=== PATIENT | female | born 1970 | race Caucasian/White ===

== ENCOUNTER → 2017-04-27 | Outpatient (CLI) | payer BC ==
[2017-04-27 15:44] LABS: BASO # 0.1 x10^3/uL (0.0-0.2); BASO % 1 % (0-3); EOS % 1 % (0-3); HEMATOCRIT 44.8 % (36.0-47.0); HEMOGLOBIN 15.3 g/dL (12.0-15.5); LYMPH # 2.5 x10^3/uL (1.0-4.8); LYMPH % 28 % (24-48); MEAN CORPUSCULAR HEMOGLOBIN 31 pg (25-35); MEAN CORPUSCULAR HGB CONC 34 g/dL (31-37); MEAN CORPUSCULAR VOLUME 90 fL (79-100); MONO % 6 % (0-9); NEUT % 65 % (31-73); PLATELET COUNT 284 x10^3/uL (140-400); RED BLOOD COUNT 4.99 x10^6/uL (3.50-5.40); RED CELL DISTRIBUTION WIDTH 13.7 % (11.5-14.5); WHITE BLOOD COUNT 9.1 x10^3/uL (4.0-11.0)
--- NOTE | 2017-04-27 15:54 | EKG ---
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
[2017-04-27 16:27] LABS: ALBUMIN 3.4 g/dL (3.4-5.0); ALBUMIN/GLOBULIN RATIO 0.9 (1.0-1.7); CALCIUM 8.6 mg/dL (8.5-10.1); CREATININE 0.7 mg/dL (0.6-1.0); GFR 89.7; TOTAL BILIRUBIN 0.4 mg/dL (0.2-1.0)
--- NOTE | 2017-04-27 16:33 | RAD ---
Indication preop. Anticipated hysterectomy. PA and lateral views of the chest were obtained. No prior imaging of the chest is available. Inspiratory effort is suboptimal. This is likely a function, at least in part, of patient body habitus. There is no gross congestive heart failure. There is no consolidated pneumonia significant pleural fluid collection or pneumothorax. There are degenerative changes in the thoracic spine IMPRESSION: Suboptimal inspiratory effort. No focal process seen in the chest
== END | disposition home or self-care (01) ==
LOC: SURGPAT 14:36
PROVIDERS: ATTEND Obstetrics & Gynecology
DX: Z01.818 Encounter for other preprocedural examination (principal)
CPT/HCPCS: 36415; 71020; 80053; 85027; 93005

== ENCOUNTER 2017-05-06 08:08 | Observation (INO) | payer BC ==
[2017-05-06] VITALS (8 sets, daily range): BP systolic 102–118; BP diastolic 54–68
[~2017-05-06] VITALS: Ht 154.9 cm; Wt 93.0 kg
[~2017-05-06 08:08] MED LIST: BUPIVACAINE-EPI 0.25%-1:200000 MPF 30 ML VIAL. ONE; CLINDAMYCIN 600MG PREMIX 50 ML IV PRN; HYDROmorphone 2 MG/ML VIAL IV PRN; IV RINGERS,LACTATED 1000ML 1,000 ML IV SCH; LIDOCAINE 1% 1 ML SYRINGE. ID PRN; MEPERIDINE PF 25 MG/ML VIAL. IV PRN; MIDAZOLAM HCL/PF 2 MG/2 ML VIAL. IV PRN; MORPHINE SULFATE 4 MG/ML DISP.SYRIN. IV PRN; PROCHLORPERAZINE 10 MG/2 ML VIAL. IV PRN; diphenhydrAMINE 50 MG/ML VIAL IV PRN; fentaNYL PF VIAL 100 MCG/2 ML VIAL IV PRN
[2017-05-06] MEDS ORDERED: ONDANSETRON PF 4 MG/2 ML VIAL. ONE (08:58)
[2017-05-06] MEDS ORDERED: ROCURONIUM 50 MG/5 ML VIAL. ONE (08:58)
[2017-05-06] MEDS ORDERED: FAMOTIDINE 20 MG/2 ML VIAL ONE (08:58)
[2017-05-06] MEDS ORDERED: fentaNYL PF VIAL 100 MCG/2 ML VIAL ONE ×2 (08:58→09:50)
[2017-05-06] MEDS ORDERED: DEXAMETHASONE SOD PHOS 20 MG/5 ML VIAL. ONE (08:58)
[2017-05-06] MEDS ORDERED: PROPOFOL 20 ML IV ONE (08:58)
[2017-05-06] MEDS ORDERED: LIDOCAINE 2% PF Vial for OR 5 ML VIAL. ONE (08:58)
[2017-05-06] MEDS ORDERED: MIDAZOLAM HCL/PF 2 MG/2 ML VIAL. ONE (08:58)
[2017-05-06 09:24] LABS: NEG OBC UR NEG; POS OBC UR POS
[2017-05-06] MEDS ORDERED: PHENYLEPHRINE in 0.9% NACL PF 1 MG/10 ML DISP.SYRIN. IV ONE (09:36)
[2017-05-06] MEDS ORDERED: ePHEDrine PF IN SALINE 50 MG/5 ML DISP.SYRIN IV ONE (09:39)
[2017-05-06] MEDS ORDERED: GLYCOPYRROLATE 1 MG/5 ML VIAL. ONE (11:10)
[2017-05-06] MEDS ORDERED: NEOSTIGMINE METHYLSULFATE 5 MG/5 ML SYRINGE. ONE (11:10)
[2017-05-06] MEDS ORDERED: KETOROLAC 60 MG/2 ML INJ FOR OR. ONE (11:11)
[2017-05-06] MEDS ORDERED: DESFLURANE > 120 MINUTES IH ONE (11:32)
[2017-05-06] MEDS ORDERED: MAGNESIUM HYDROXIDE 2,400 MG/30 ML ORAL.SUSP. PO PRN (11:45)
[2017-05-06] MEDS ORDERED: MORPHINE SULFATE 2 MG/ML DISP.SYRIN. IV PRN (11:45)
[2017-05-06] MEDS ORDERED: NALOXONE 0.4 MG/ML VIAL. IV PRN (11:45)
[2017-05-06] MEDS ORDERED: CALCIUM CARBONATE 500 MG TAB.CHEW PO PRN (11:45)
[2017-05-06] MEDS ORDERED: HYDROcodone/APAP 5/325MG 1 TAB TABLET PO PRN (11:45)
[2017-05-06] MEDS ORDERED: diphenhydrAMINE 50 MG/ML VIAL IV PRN (11:45)
[2017-05-06] MEDS ORDERED: ZOLPIDEM 5 MG TABLET. PO PRN (11:45)
[2017-05-06] MEDS ORDERED: SIMETHICONE 80 MG TAB.CHEW PO PRN (11:45)
[2017-05-06] MEDS ORDERED: LACTULOSE 20 GM/30 ML SOLUTION. PO PRN (11:45)
[2017-05-06] MEDS ORDERED: ONDANSETRON PF 4 MG/2 ML VIAL. IV PRN (11:45)
[2017-05-06] MEDS ORDERED: diphenhydrAMINE HCL 25 MG CAPSULE PO PRN (11:45)
[2017-05-06] MEDS ORDERED: MAG HYDROX/ALUMINUM HYD/SIMETH 30 ML ORAL.SUSP PO PRN (11:45)
--- NOTE | 2017-05-06 11:55 | PDOC ---
BRIEF OPERATIVE NOTE Date: May 06, 2017 Pre-Op Diagnosis menorrhagia, ovarian cyst, enlarged uterus Post-Op Diagnosis same with pelvic adhesive disease Procedure Performed LAVH, bilateral salpingectomy,drainage left ovarian cyst, adhesiolysis Surgeon Dr. Sandra Quintana Software Client Architect Dr. Katarina Trejo Anesthesiologist see anesthesia records Anesthesia Type: General Blood Loss 100cc IV Fluid see anesthesia records Urine Output 600cc clear via busby Specimens Obtained cervix, uterus, bilateral tubes Findings enlarged uterus with fundus adhesed to anterior abdominal wall, enlarged left ovary with simple cyst, omental adhesions to anterior abdominal wall also; normal right tube and ovary Complications none Additional Remarks [id number] SANDRA QUINTANA MD May 06, 2017 11:55
[2017-05-06] MEDS: fentaNYL PF VIAL 100 MCG/2 ML VIAL IV PRN ×2 (12:15→12:48)
--- NOTE | 2017-05-06 12:57 | OP ---
DATE OF SURGERY: 05/06/2017 PREOPERATIVE DIAGNOSES: Enlarged uterus, menorrhagia, and known ovarian cyst seen on sonogram. POSTOPERATIVE DIAGNOSES: Enlarged uterus, menorrhagia, and known ovarian cyst seen on sonogram with pelvic adhesive disease and a left ovarian simple cyst. PROCEDURE PERFORMED: Laparoscopic-assisted vaginal hysterectomy, bilateral salpingectomy, drainage of left ovarian cyst, and extensive adhesiolysis. SURGEON: Mitchell Mello M.D. and Katarina Trejo MD ANESTHESIA: General endotracheal. ESTIMATED BLOOD LOSS: 100 mL. URINE OUTPUT: 600 mL clear via García catheter. FINDINGS: An enlarged uterus with the fundus adhesed to the anterior abdominal wall, normal right tube and ovary, normal left tube, enlarged left ovary with simple cyst. Also, she had scattered omental adhesions to the anterior abdominal wall as well that had to be taken down. COMPLICATIONS: None. DESCRIPTION OF PROCEDURE: This patient was taken to the Operating Room where general anesthesia was placed. The patient was placed in a dorsal lithotomy position in [facility]. The patient's abdomen and vagina were prepped and draped in the normal sterile fashion, and a García catheter was inserted under sterile technique. At this point, a time-out was performed. Once this was done, a bivalve speculum was placed in the patient's vagina. A single tooth tenaculum was used to grasp the anterior lip of the cervix. A 10 mL of 0.25% Marcaine with epinephrine was used to circumferentially inject around the cervix for both hemodissection and hemostatic purposes later. The cervix was drawn at very high and had minimal descend or movement at this point due to what I thought was her enlarged uterus and then possible adhesions which turned out to be ____. The Valtchev uterine manipulator was placed through the endocervical os, locked on the single tooth tenaculum, and the bivalve speculum was then removed. Top gloves were discarded and changed. Attention was then turned to the abdomen where a small supraumbilical skin incision was made with the scalpel. Curved Naheed was used to dissect through the subcuticular layer to the fascia. The 5-mm Visiport was used to directly enter the abdominal cavity. Opening patient pressure was 3-4 mmHg. Carbon dioxide gas was used to then appropriately insufflate the abdominal cavity to maintain a pressure of 15 mmHg. The patient was placed in Trendelenburg position. Omental adhesions were initially seen. We could easily get around them and then place the right lower quadrant port, another 5 mm port, a small incision was made coming in under direct visualization without difficulty with a 5 mm Ethicon atraumatic disposable port. We did move the scope over to look at the umbilical port to make sure it was clear of bowel adhesions, and it was actually above the adhesions. The adhesions were from the umbilicus down towards the uterus. Once we got around the omental adhesions and took those down, you could see dense adhesions of the fundus of the uterus. It was adhesed to the anterior abdominal wall, very thick, dense adhesions, but we were able to get around it, and the bladder flap was lower than this, so they were safe to be taken down laparoscopically under direct visualization. A left lower quadrant port was placed under direct visualization as well, and we used a [place] and the LigaSure then to take down all the omental adhesions and then the fundal adhesions of the uterus to the anterior abdominal wall. The round ligaments were identified bilaterally. They were cauterized and cut with the LigaSure Advance creating a window in the mesosalpinx going down and making the bladder flap anteriorly as far as we could see, and then we went back and took down the fundal adhesions once we knew the bladder was down and we could see around that. Once the uterus was down, the remainder of it was easy. She had a long skinny enlarged uterus. We could further make that bladder flap sharply with the monopolar tip making sure it was down elevating the tubes but leaving both ovaries. She does have a simple 3-4 cm cyst straw-colored fluid on the left that was easily drained with the monopolar tip, but leaving both ovaries per the patient's request, crossing above the ovary, below the tube through the mesosalpinx, amputating both tubes, and then crossing bilateral uteroovarian pedicles as well, going down and getting the uterines and then crossing contralaterally and hugging the cervix and staying vertical going down to the level of the uterosacrals. Once the uterus was free, and it was blanched, and it was always free posteriorly, and all the adhesions were taken down, and the blood supply was obtained, all instruments were removed from the abdomen, and attention was turned vaginally. Again, before even doing the uterus, we did take down the omental adhesions in the midline. It was between the port and the uterus as well using the LigaSure, the monopolar tip, and just crossing it, cauterizing and cutting it, making sure it was clear, and it was just omentum and then we did the hysterectomy and discarded above. All instruments were removed from the vagina, and a weighted speculum was placed in. Thyroid Melissa clamps were placed on the anterior and posterior lips of the cervix respectively. A scalpel was used to make a circumferential incision in the cervix. An open Ray-Prashant 4 x 4 was used to gently push up the anterior bladder peritoneum. The cervix was elevated, and the posterior cul-de-sac was sharply entered with curved Kan scissors. A #0 Vicryl stitch was used to secure the posterior peritoneum here to the vaginal cuff. It was tagged with a curved Naheed clamp, and the needle was cut and passed off. The short weighted speculum was removed and replaced with the long weighted Luis speculum. Curved Ayaan clamps x 2 were placed on the patient's left uterosacral ligament. They were doubly clamped with curved Heaneys, cut with Kan scissors and suture ligated x2 with #0 Vicryl. Second one was taken through the vaginal cuff securing the uterosacral ligament to the vaginal cuff and tagging it with a straight Naheed clamp and cutting and passing the needle off. This was done exactly the same on the patient's right uterosacral, double clamping the uterosacrals with curved Heaneys, cutting with the long Kan scissors, and suture ligating x2 with #0 Vicryl, again taking the second one through the vaginal cuff securing uterosacral ligament to the vaginal cuff and tagging it with a straight Naheed clamp and cutting and passing the needle off. The remaining pedicle on both sides was delineated with a curved right angle clamp taking it around that and then using the vaginal LigaSure Max to cauterize these pedicles in 2-3 bites. Once it was free all the way around the cervix, uterus, bilateral tubes were delivered in total and passed off for permanent pathology. I did attempt to find the anterior bladder peritoneum. However, it was very very high and difficult to find, so I did not do this. I did use a sponge stick to examine the pedicles and evacuated the cul-de-sac of any clots and debris. I took out the long weighted speculum and replaced it with the short weighted vaginal speculum, and I took 2-0 Vicryl through near the anterior cuff, the left uterosacral ligament, posterior peritoneum, and right uterosacral ligament, thus closing the peritoneum in a pursestring like fashion. Both right and left uterosacral tags were clipped at this point, and all that remained was that posterior cuff tag. The vaginal cuff was closed in an anterior to posterior running locked fashion with a full length 2-0 Vicryl and tied to that posterior cuff tag. A few interrupted sutures were placed in the middle at the end with excellent results. Once this was done, all instruments were removed vaginally, and all gloves were discarded and changed. A second look from above cleared any clots and debris, irrigated the cul-de-sac, making sure it was clear and hemostatic, and it was. Tisseel was placed over the pedicles. The right and left lower quadrant ports were removed. Before removing it, we did look back at the umbilical port. It was still clear. After doing all the adhesiolysis and the right and left lower quadrant ports were removed under direct visualization, these two were hemostatic. Gas was released from the umbilical port. All three port sites were closed with 4-0 nylon at the level of the skin and injected with a total of 10 mL of 0.25% Marcaine with epinephrine. The patient was awakened from anesthesia, extubated, and taken to Recovery room in stable condition. MITCHELL MELLO MD DR: ELPIDIO/ana maría JOB#: [id number] / [id number]
[2017-05-06] MEDS: 0.9 % SODIUM CHLORIDE 10 ML DISP.SYRIN. IV PRN (13:43)
[2017-05-06] MEDS: KETOROLAC TROMETHAMINE 30 MG/ML INJ. IV PRN ×2 (13:54→20:09)
[2017-05-06] MEDS: oxyCODONE/APAP 5/325 1 TAB TABLET PO PRN ×2 (16:08→22:04)
[2017-05-07] MEDS: KETOROLAC TROMETHAMINE 30 MG/ML INJ. IV PRN ×2 (02:01→08:16)
[2017-05-07] MEDS: oxyCODONE/APAP 5/325 1 TAB TABLET PO PRN ×2 (02:02→06:01)
[2017-05-07 06:00] VITALS: BP 109/56
[2017-05-07 07:12] LABS: CALCIUM 8.9 mg/dL (8.5-10.1); GFR 59.4; POTASSIUM 4.3 mmol/L (3.5-5.1)
[2017-05-07] MEDS: 0.9 % SODIUM CHLORIDE 10 ML DISP.SYRIN. IV PRN (08:13)
--- NOTE | 2017-05-07 08:59 | PDOC ---
SURGICAL PROGRESS NOTE Subjective Doing well without complaints. Tolerating regular diet, voiding without catheter, passing flatus, walking halls, tolerating po pain meds and wanting to go home. Scant vag spotting only Vital Signs Vital Signs Date Time Temp Pulse Resp B/P (MAP) Pulse Ox O2 Delivery O2 Flow Rate FiO2 05/07/17 06:01 20 05/07/17 06:00 98.0 60 109/56 (73) 98.0 05/07/17 03:05 Room Air 05/06/17 21:15 98 05/06/17 12:15 2.0 I&O Intake and Output 05/07/17 07:00 Intake Total 2450 ml Output Total 75 ml Balance 2375 ml Intake Oral 950 ml IV Total 1500 ml Output Urine Total 75 ml PATIENT HAS A KIM: No General: Alert, Oriented X3, Cooperative, No acute distress HEENT: Atraumatic Heart: Regular rate Abdomen: Normal bowel sounds, Soft, No tenderness, Other (all port sites c/d/i) Extremities: No clubbing, No cyanosis, No edema, No tenderness/swelling Skin: No rashes, No breakdown Neuro: Normal gait, Normal speech Psych/Mental Status: Mental status NL, Mood NL Labs Laboratory Tests Test 05/06/17 08:20 05/07/17 06:40 Urine Test Negative (NEG) Hematocrit 40.6 % (36.0-47.0) Sodium Level 139 mmol/L (136-145) Potassium Level 4.3 mmol/L (3.5-5.1) Chloride Level 101 mmol/L (98-107) Carbon Dioxide Level 29 mmol/L (21-32) Anion Gap 9 (6-14) Blood Urea Nitrogen 8 mg/dL (7-20) Creatinine 1.0 mg/dL (0.6-1.0) Estimated GFR (Cockcroft-Gault) 59.4 Glucose Level 105 mg/dL (70-99) Calcium Level 8.9 mg/dL (8.5-10.1) Laboratory Tests Test 05/07/17 06:40 Hematocrit 40.6 % (36.0-47.0) Sodium Level 139 mmol/L (136-145) Potassium Level 4.3 mmol/L (3.5-5.1) Chloride Level 101 mmol/L (98-107) Carbon Dioxide Level 29 mmol/L (21-32) Anion Gap 9 (6-14) Blood Urea Nitrogen 8 mg/dL (7-20) Creatinine 1.0 mg/dL (0.6-1.0) Estimated GFR (Cockcroft-Gault) 59.4 Glucose Level 105 mg/dL (70-99) Calcium Level 8.9 mg/dL (8.5-10.1) I have reviewed the following labs, vitals, nursing Cardiovascular: No pertinent hx Pulmonary: No pertinent hx GI: No pertinent hx Heme/Onc: No pertinent hx Endocrine: No pertinent hx Problem List menorrhagia, enlarged uterus, pelvic adhesive disease Assessment/Plan POD#1 s/p LAVH, bilateral salpingectomy, drainage left ovarian cyst, adhesiolysis D/c to home later today NPV x 6 weeks light/limited activity x 2 weeks keep scheduled follow up in office with me in 7-10d No driving while on narcotic pain pills has percocet filled at home call or return sooner if has any other questions or concerns not limited to but including pain unrelieved with pain pills, increased or unexplained vaginal bleeding or T>100.4 Problems: MITCHELL QUINTANA MD May 07, 2017 08:58
--- NOTE | 2017-05-07 09:01 | PDOC3 ---
Discharge Summary Visit Information Date of Admission: May 06, 2017 Date of Discharge: May 07, 2017 Brief Hospital Course Allergies Allergies Coded Allergies Type Severity Reaction Last Updated Verified Penicillins Allergy Severe RASH 04/27/17 Yes Sulfa (Sulfonamide Antibiotics) Allergy Severe SWELLING AND HIVES 04/27/17 Yes Vital Signs Vital Signs Date Time Temp Pulse Resp B/P (MAP) Pulse Ox O2 Delivery O2 Flow Rate FiO2 05/07/17 06:01 20 05/07/17 06:00 98.0 60 109/56 (73) 98.0 05/07/17 03:05 Room Air 05/06/17 21:15 98 05/06/17 12:15 2.0 Lab Results Laboratory Tests Test 05/06/17 08:20 05/07/17 06:40 Urine Test Negative (NEG) Hematocrit 40.6 % (36.0-47.0) Sodium Level 139 mmol/L (136-145) Potassium Level 4.3 mmol/L (3.5-5.1) Chloride Level 101 mmol/L (98-107) Carbon Dioxide Level 29 mmol/L (21-32) Anion Gap 9 (6-14) Blood Urea Nitrogen 8 mg/dL (7-20) Creatinine 1.0 mg/dL (0.6-1.0) Estimated GFR (Cockcroft-Gault) 59.4 Glucose Level 105 mg/dL (70-99) Calcium Level 8.9 mg/dL (8.5-10.1) Laboratory Tests Test 05/07/17 06:40 Hematocrit 40.6 % (36.0-47.0) Sodium Level 139 mmol/L (136-145) Potassium Level 4.3 mmol/L (3.5-5.1) Chloride Level 101 mmol/L (98-107) Carbon Dioxide Level 29 mmol/L (21-32) Anion Gap 9 (6-14) Blood Urea Nitrogen 8 mg/dL (7-20) Creatinine 1.0 mg/dL (0.6-1.0) Estimated GFR (Cockcroft-Gault) 59.4 Glucose Level 105 mg/dL (70-99) Calcium Level 8.9 mg/dL (8.5-10.1) Brief Hospital Course Ms. Mcknight is a 47 old female who presented with enlarged uterus, menorrhagia. She underwent LAVH with bilateral salpingectomy and adhesiolysis yesterday without complications. She has had an unremarkable postoperative course and is desiring to go home. Discharge Information Condition at Discharge: Improved Follow Up: Weeks Disposition/Orders: D/C to Home Miscellaneous Medications Info (No Known Medications Prior To Admisstion), 1 EACH , (Reported) Patient Instructions Patient Instructions POD#1 s/p LAVH, bilateral salpingectomy, drainage left ovarian cyst, adhesiolysis D/c to home later today NPV x 6 weeks light/limited activity x 2 weeks keep scheduled follow up in office with me in 7-10d No driving while on narcotic pain pills has percocet filled at home call or return sooner if has any other questions or concerns not limited to but including pain unrelieved with pain pills, increased or unexplained vaginal bleeding or T>100.4 MITCHELL QUINTANA MD May 07, 2017 09:01
[2017-05-07 09:15] VITALS: BP 107/66
--- NOTE | 2017-05-10 12:36 | PATHOLOGY ---
PATHOLOGY REPORT * * * * * * * * FINAL DIAGNOSIS: Uterus, cervix, bilateral fallopian tubes "uterus, cervix, bilateral fallopian tubes, hysterectomy and bilateral salpingectomy": - Uterine cervix with mild reactive changes. - Focally polypoid disorder, proliferative phase endometrium without any evidence of hyperplasia or malignancy. - Left fallopian tube with a paratubal cyst. - Right fallopian tube with no diagnostic changes. (SHA:mml; d/t: 05/10/2017) REPORT ELECTRONICALLY SIGNED BY: Venkatesh Morgan M.D. DATE/TIME: 05/10/2017 12:35 * * * * * * * * GROSS PATHOLOGY: The specimen is received in formalin, labeled "Wagneruterus, cervix and bilateral fallopian tubes" is a hysterectomy specimen including uterus, cervix and bilateral fallopian tubes. The uterus measures 12.2 cm (superior to inferior) by 6.2 cm (cornu to cornu) by 5.6 cm (anterior to posterior) and weighs 158 g. The serosa is lucas-pink, smooth and displays a 5 x 5 cm focally hemorrhagic, roughened area on the anterior fundus. The 2.4 x 2.2 cm lucas-white glistening cervical phase displays a 1.1 cm paracentrally located ovoid cervical os. The specimen is bivalved to reveal a patent trabeculated endocervical canal and a lucas-pink triangle endometrium. Sectioning through the specimen reveals the transformation from the 0.3 cm thick endometrium to be 2.1 cm thick lucas-pink, trabeculated myometrium is well-demarcated. The left fallopian tube with fimbria measures 6.2 cm in length by 1.0 cm in diameter. The serosa is pink to purple, smooth and displays a 0.8 x 0.5 x 0.4 cm peritubal serous fluid-filled cyst located 1.9 cm proximal to the fimbria. Sectioning through the fallopian tube reveals a diffusely patent lumen. The right fallopian tube with fimbria measures 5.8 cm in length by 1.0 cm in diameter. The serosa is pink-purple, smooth and sectioning reveals a diffusely patent lumen. Section code: A1-cervix 12:00 and 6:00, A2-anterior endomyometrium, A3-posterior endomyometrium, A4-anterior and posterior myometrium and serosa with roughened area, A5-environmental marketing representative sections of left fallopian tube with peritubal cyst, A6-environmental marketing representative sections of right fallopian tube (DRL; 05/07/2017) INITIAL CPT CODE(S): A; 19475 Professional services performed by [facility] at [address] [address] Technical services performed by [facility] at [address] [place] [address], [address], [place] [address]. SPECIMEN(S) RECEIVED: A.Uterus, cervix, bilateral fallopian tubes CLINICAL HISTORY: Dysmenorrhea PATIENT: FRED CHRISTEN S /AGE: 4 1970 (Age: 47) PATIENT #: [id number] ALT CASE #: SPECIMEN COLLECTION DATE: 05/06/2017 SPECIMEN RECEIVED DATE: 05/06/2017 [facility] - [address] [place] [address] - PHONE: [phone] * * * END OF REPORT * * *
== END 2017-05-07 09:28 | disposition home or self-care (01) ==
LOC: SURG 08:08 → 3 NORTH 11:55
PROVIDERS: ADMIT Obstetrics & Gynecology; ATTEND Obstetrics & Gynecology
DX: N85.2 Hypertrophy of uterus (principal); N92.0 Excessive and frequent menstruation with regular cycle; N83.202 Unspecified ovarian cyst, left side; N73.6 Female pelvic peritoneal adhesions (postinfective); K66.0 Peritoneal adhesions (postprocedural) (postinfection)
CPT/HCPCS: 36415; 49322; 58552; 80048; 81025; 85014; 86850; 86900; 86901; 96374; 96376; C1769; G0378; G0379; J1100; J1885; J1956; J2250; J2370; J2405; J2704; J2710; J3010; J3490; J7030; J7120; S0028